=== PATIENT | female | born 1990 | race Caucasian/White ===

== ENCOUNTER 2020-01-11 05:59 | Day surgery (SDC) | payer MEDICAID, SELFPAY ==
[2020-01-04 14:27] LABS: microscopic required? NO
[2020-01-04 14:49] LABS: ALBUMIN 4.2 g/dL (3.4-5.0); ALKALINE PHOSPHATASE 54 U/L (46-116); ALT/SGPT 28 U/L (14-59); AST/SGOT 32 U/L (15-37); BILIRUBIN TOTAL 0.6 mg/dL (0.20-1.00); CALCIUM 9.1 mg/dL (8.5-10.1); CARBON DIOXIDE 30.7 mmol/L (21-32); CHLORIDE SERUM 103 mmol/L (98-107); CREATININE SERUM 0.7 mg/dL (0.6-1.0); GFR1 > 60 mL/min; GLUCOSE SERUM 94 mg/dL (74-106); POTASSIUM SERUM 4.2 mmol/L (3.5-5.1); SODIUM SERUM 141 mmol/L (136-145); TOTAL PROTEIN, SERUM 7.9 g/dL (6.4-8.2)
[2020-01-04 15:20] LABS: BASOPHIL % 0.7 % (0-2); PLATELET COUNT 213 x10^3mcL (130-400); RED CELL DISTRIBUTION WIDTH 13.9 % (11.5-14.5)
[2020-01-04 15:42] LABS: UA SPECIFIC GRAVITY 1.015 (1.005-1.035); urine erythrocyte NEGATIVE (NEGATIVE)
--- NOTE | 2020-01-04 16:13 | NUR ---
CALLED DR. BUSTOS'S OFFICE AND TALKED TO ELKIN, PHYSICIAN CUSTOMER ENGINEERING SPECIALIST: IT IS OK TO CHECK HCG FOR INSTEAD OF UCG (NO ORDER UCG OPTION FROM LAB).
[~2020-01-11] VITALS: Ht 162.6 cm; Wt 61.2 kg
[2020-01-11 06:32] VITALS: BP 111/68
[2020-01-11 17:32] VITALS: BP 113/70
== END 2020-01-11 14:50 | disposition home or self-care (01) ==
LOC: DS 05:59 → OR 07:30 → DS 14:50
PROVIDERS: ATTEND Obstetrics & Gynecology
DX: K64.4 Residual hemorrhoidal skin tags (principal); Z11.59 Encounter for screening for other viral diseases; N80.0 Endometriosis of uterus; R10.2 Pelvic and perineal pain; Z88.1 Allergy status to other antibiotic agents; Z88.2 Allergy status to sulfonamides; Z98.890 Other specified postprocedural states; Z79.899 Other long term (current) drug therapy
CPT/HCPCS: J1170; J1885; J2001; J2405; J3010; J3490; U0003-CS